=== PATIENT | male | born 1990 | race Caucasian/White ===

== ENCOUNTER 2017-07-25 09:39 | Emergency (ER) | END 2017-07-25 10:56 | disposition home or self-care (01) ==

== ENCOUNTER 2018-02-15 23:46 | Emergency (ER) | payer OTHER ==
[~2018-02-15] VITALS: Ht 189.2 cm; Wt 159.0 kg
[2018-02-15 23:51] VITALS: BP 164/86; PULSE 105; RESP 20; Ht 189.2 cm; Wt 159.0 kg
[2018-02-16] MEDS ORDERED: HYDR-4011 PO (00:49)
[2018-02-16] MEDS ORDERED: BACITUD TOP (00:57)
--- NOTE | 2018-02-16 01:01 | ERD ---
ER Documentation Chief Complaint Chief Complaint scanty bleed from the foreskin today HPI 27-year-old male with a past history of paraphimosis presents with complaint of being unable to retract over the head of the penis. States that this started at 11 PM. He is unsure if he is able to urinate. Denies fevers, chills. Denies past medical history. Denies allergies. Denies medications. Denies alcohol, tobacco, drug use. ROS All systems reviewed and are negative except as per history of present illness. Medications Home Meds Active Scripts Bacitracin* (Bacitracin Oint (UD)*) 1 Applic Oint, 1 APPLIC TOP ONCE for prevent infection, #1 TUB 0 Refills APPLY TO Prov:ANNEMARIE LUX 02/16/18 Hydrocodone/Acetaminophen ([place] 5-325 Tablet) 1 Each Tablet, 1 TAB PO Q6H PRN for PAIN, #7 TAB 0 Refills Prov:ANNEMARIE LUX 02/16/18 Allergies Allergies: Coded Allergies: No Known Allergy (Unverified , 07/25/17) PMhx/Soc Hx Alcohol Use: No Hx Substance Use: No Hx Tobacco Use: No FmHx Family History: No diabetes, No coronary disease, No other Physical Exam Vitals Vital Signs Date Temp Pulse Resp B/P (MAP) Pulse Ox O2 O2 Flow FiO2 Time Delivery Rate 02/15/18 98.1 105 20 164/86 96 23:51 (112) Physical Exam Const: No acute distress Resp: Clear to auscultation bilaterally Cardio: Regular rate and rhythm, no murmurs : Swollen, intractible foreskin noted around shaft of penis. Psych: Normal Mood and Affect Procedures/MDM ER Course: Foreskin successfully retracted back over the head of the penis. MDM: 27-year-old male with a past history of paraphimosis presents with complaint of being unable to retract over the head of the penis. States that this started at 11 PM. He is unsure if he is able to urinate. Successful retraction performed in ED. Patient prescribed pain medication and bacitracin. Patient discharged with strict ER precautions. Patient advised to follow up with PMD. All questions answered at discharge. Departure Diagnosis: Primary Impression: Paraphimosis Condition: Stable Patient Instructions: Paraphimosis Referrals: MERT PADILLA MD (PCP) RAVEN DELGADO MD Additional Instructions: FOLLOW UP WITH YOUR PRIMARY CARE PHYSICIAN TOMORROW.Return to this facility if you are not improving as expected. ANNEMARIE LUX Feb 16, 2018 01:01
== END 2018-02-16 01:30 | disposition home or self-care (01) ==
LOC: FTE 23:46
DX: N47.2 Paraphimosis (principal)
CPT/HCPCS: 99283